=== PATIENT | male | born 1965 | race Caucasian/White ===

== ENCOUNTER 2023-04-01 19:15 | Emergency (ER) | payer OTHER ==
[~2023-04-01] VITALS: Ht 185.4 cm; Wt 120.2 kg
[2023-04-01 19:17] VITALS: BP 122/78; PULSE 104; RESP 18; TEMP 98.4; O2SAT 95
[2023-04-01 20:12] VITALS: BP 122/78; PULSE 104; RESP 18; TEMP 98.4
[2023-04-07 04:58] VITALS: O2SAT 95
== END 2023-04-01 20:12 ==
LOC: MED 19:15
DX: Z02.89 Encounter for other administrative examinations (principal); I10 Essential (primary) hypertension; E11.9 Type 2 diabetes mellitus without complications; Z79.4 Long term (current) use of insulin; Z79.899 Other long term (current) drug therapy; V49.88XA Car occupant (driver) (passenger) injured in other specified transport accidents, initial encounter; Y93.89 Activity, other specified; Y92.89 Other specified places as the place of occurrence of the external cause; Y99.8 Other external cause status
CPT/HCPCS: 99283